=== PATIENT | male | born 1990 | race Caucasian/White ===

== ENCOUNTER 2018-07-24 00:53 | Emergency (ER) | payer BC ==
[2018-07-24] MEDS ORDERED: Bupivacaine PF 0.5% 30 ML VIAL ONE (01:11)
[2018-07-24] MEDS ORDERED: Penicillin V Potassium 250 MG TAB ONE (01:21)
== END 2018-07-24 01:30 | disposition home or self-care (01) ==
LOC: MADERS 00:53
DX: K04.7 Periapical abscess without sinus (principal); Z79.899 Other long term (current) drug therapy
CPT/HCPCS: 64400; S0020